=== PATIENT | female | born 2000 | race Asian ===

== ENCOUNTER 2024-08-02 14:19 | Emergency (ER) | payer SELFPAY ==
[2024-08-02 14:23] VITALS: BP 124/78; PULSE 76; RESP 16; TEMP 36.7; O2SAT 100
[2024-08-02 15:29] LABS: BEDSIDEPREGUCG Negative (Negative)
--- NOTE | 2024-08-02 15:34 | ED.ABDPAIN ---
HPI - Abdominal Pain General Chief Complaint: Abdominal Pain Stated Complaint: ABDOMINAL PAIN LMP 06/25 Time Seen by Provider: 08/02/24 14:33 Source: patient Mode of arrival: ambulatory Limitations: no limitations History of Present Illness HPI narrative: This is a 24-year-old female who presents to the ED for chief complaint of lower abdominal cramping that is consistent with normal menstrual cycle cramps. Reports LMP 06/25/2024. However this time she has not had any vaginal bleeding it. Denies vaginal discharge or concern for STDs. Denies fevers, chills, nausea, vomiting, chest pain, shortness of breath, cough. She has just moved here over the past couple of months from [facility]. She is enquiring on how to get insurance and establish medical care. Related Data Allergies Allergy/AdvReac Type Severity Reaction Status Date / Time No Known Allergies Allergy Verified 08/02/24 15:32 Review of Systems Review of Systems: All systems as dictated in HPI Exam Narrative: GENERAL: Well-appearing, well-nourished, and in no acute distress. HEAD: Normocephalic, atraumatic. EYES: PERRLA and EOMI. ENT: Nares clear, no rhinorrhea or epistaxis. Mucous membranes moist. Oropharynx without tonsillar hypertrophy exudate or other lesions. NECK: Supple. No adenopathy or masses. CHEST: No respiratory distress. Clear to auscultation. No wheezes rales or rhonchi HEART: Regular rate and rhythm. No murmur heard. Normal peripheral pulses. ABDOMEN: Soft, nontender, nondistended, normal active bowel sounds. MSK: Normal range of motion. No edema. SKIN: Warm, dry, no rash. NEURO: Alert and oriented x4. No focal deficits. PSYCH: Normal mood and affect. Course Vital Signs Vital signs: Vital Signs Temperature 98.0 F 08/02/24 14:23 Pulse Rate 76 08/02/24 14:23 Respiratory Rate 16 08/02/24 14:23 Blood Pressure 124/78 08/02/24 14:23 Pulse Oximetry 100 08/02/24 14:23 Oxygen Delivery Room Air 08/02/24 14:23 Temperature 97.4 F L 08/02/24 17:06 Pulse Rate 62 08/02/24 17:06 Respiratory Rate 16 08/02/24 17:06 Blood Pressure 108/72 08/02/24 17:06 Pulse Oximetry 100 08/02/24 17:06 Oxygen Delivery Room Air 08/02/24 14:23 MDM - Abdominal Pain MDM Narrative Medical decision making narrative: this is a 24-year-old female who presents to the ED for chief complaint of lower abdominal cramping. Vitals are normal. Exam shows mild suprapubic tenderness. Patient does not appear toxic and has no flank tenderness. Lab work shows normal CBC and CMP. Urinalysis questionable for urinary tract infection. test negative. She feels much better after Toradol here. Rx for cephalexin given. Pt will be discharged in stable condition. Return precautions given and supportive measures discussed. Pt is understanding and agreeable with plan for discharge and follow-up with PCP. Lab Data 08/02/24 15:41 08/02/24 15:41 Labs: Lab Results 08/02/24 08/02/24 Range/Units 14:31 15:41 WBC 9.4 (4.5-10.0) K/mm3 RBC 4.54 (4.2-5.4) M/mm3 Hgb 13.6 (12.0-15.0) g/dL Hct 41.1 (37.0-47.0) % MCV 90.5 (80-100) fl MCH 30.0 (26-34) pg MCHC 33.1 (32-36) g/dl RDW 12.4 (11.5-14.5) % Plt Count 269 (150-375) k/mm3 MPV 10.8 H (7.4-10.4) fl Immature Gran % (Auto) 0.1 (0-0.5) % Neut % (Auto) 65.6 (45.5-73.1) % Lymph % (Auto) 25.1 (18.3-44.2) % [place] % (Auto) 6.3 (2.6-8.5) % Eos % (Auto) 2.6 (0-4.4) % Baso % (Auto) 0.3 (0.2-1.2) % Lymph # (Auto) 2.35 (0.9-3.2) K/mm3 [place] # (Auto) 0.6 (0.1-0.6) K/mm3 Eos # (Auto) 0.2 (0-0.3) K/mm3 Baso # (Auto) 0.0 (0.0-0.1) K/mm3 Abs Immat Gran (auto) 0.01 (0.00-0.031) K/mm3 Absolute Neuts (auto) 6.1 (1.3-6.7) K/mm3 Absolute Nucleated RBC 0.000 (0.0-0.012) K/mm3 Nucleated RBC % 0.0 (0.0-0.2) % Sodium 139 (137-145) mmol/L Potassium 4.3 (3.4-5.0) mmo
[2024-08-02] MEDS: KETOROLAC 30 MG/ML VIAL (*BKC) IV PUSH (15:46)
[2024-08-02 15:49] LABS: Basophils Percent Auto 0.3 % (0.2-1.2); Eosinophils Absolute Auto 0.2 K/mm3 (0-0.3); Eosinophils Percent Auto 2.6 % (0-4.4); Hematocrit 41.1 % (37.0-47.0); Hemoglobin 13.6 g/dL (12.0-15.0); Immature Granulocyte Absolute 0.01 K/mm3 (0.00-0.031); Immature Granulocyte Percent A 0.1 % (0-0.5); Lymphocytes Absolute Auto 2.35 K/mm3 (0.9-3.2); Lymphocytes Percent Auto 25.1 % (18.3-44.2); Mean Corpuscular HGB Conc 33.1 g/dl (32-36); Mean Corpuscular Volume 90.5 fl (80-100); Mean Platelet Volume 10.8 fl (7.4-10.4); Monocytes Absolute Auto 0.6 K/mm3 (0.1-0.6); Monocytes Percent Auto 6.3 % (2.6-8.5); Neutrophils Absolute Auto 6.1 K/mm3 (1.3-6.7); Neutrophils Percent Auto 65.6 % (45.5-73.1); Platelet Count Result 269 k/mm3 (150-375); Red Blood Count 4.54 M/mm3 (4.2-5.4); Red Cell Distribution Width 12.4 % (11.5-14.5); White Blood Count 9.4 K/mm3 (4.5-10.0)
[2024-08-02 15:58] LABS: Anion Gap 12 mmol/L (4-12); Blood Urea Nitrogen 10 mg/dL (7-17); Calcium 9.5 mg/dL (8.4-10.2); Carbon Dioxide 27 mmol/L (22-30); Chloride 100 mmol/L (98-107); Estimated CRCL calculation 107 ml/min; Estimated Glomerular Filt Rate > 60; Glucose 95 mg/dL (65-110); Lipase 98 U/L (23-300); Potassium 4.3 mmol/L (3.4-5.0); Sodium 139 mmol/L (137-145)
[2024-08-02 16:00] LABS: Appearance Urine Clear (Clear); Blood Urine Trace-intact (Negative); Color Urine Yellow (Yellow); Glucose Urine UA Negative (Negative); Ketones Urine Negative (Negative); Nitrate Urine Negative (Negative); Protein Urine Negative (Negative)
[2024-08-02 16:01] LABS: Add Urine Microscopic? YES; Bilirubin Urine Negative (Negative); Leukocyte Esterase Ur 2+ LEU/UL (Negative); Urobilinogen Urine 0.2 mg/dL (<2.0)
[2024-08-02 16:06] LABS: Bacteria Urine 2+ /hpf; Squamous Epithelial Cell Urine Few /hpf (Few)
[2024-08-02 17:06] VITALS: BP 108/72; PULSE 62; RESP 16; TEMP 36.3; O2SAT 100
== END 2024-08-02 17:08 | disposition home or self-care (01) ==
PROVIDERS: Emergency Provider Physician Assistant
DX: N39.0 Urinary tract infection, site not specified (principal); R10.30 Lower abdominal pain, unspecified
CPT/HCPCS: 36415; 80048; 81001; 81025; 83690; 85025; 87086; 96374; 99284; J1885